=== PATIENT | male | born 1975 | race African-American/Black ===

== ENCOUNTER 2018-08-30 12:47 | Inpatient (IN) | payer OTHER ==
[2018-08-30 14:28] VITALS: BMI 41.7
--- NOTE | 2018-08-30 15:37 | HP ---
COWS - Scale Resting Pulse: 0= ME 80 or Below Sweatin= Chills/Flushing Restless Observation: 3= Extraneous Movement Pupil Size: 1= Pupils >than Normal Bone or Joint Aches: 1= Mild Discomfort Runny Nose/ Eye Tearin= Runny Nose/Eyes GI Upset > 30mins: 1= Stomach Cramp Tremor Observation: 1= Tremor [place], Not Seen Yawning Observation: 1= 1-2x During Session Anxiety or Irritability: 1=Feels Anxious/Irritable Goose Flesh Skin: 0=Smooth Skin COWS Score: 12 CIWA Score - Admission Criteria OASAS Guidelines: Admission for Medically Managed Detox: Requires at least one of the followin. CIWA greater than 12 2. Seizures within the past 24 hours 3. Delirium tremens within the past 24 hours 4. Hallucinations within the past 24 hours 5. Acute intervention needed for co occurring medical disorder 6. Acute intervention needed for co occurring psychiatric disorder 7. Severe withdrawal that cannot be handled at a lower level of care (continued vomiting, continued diarrhea, abnormal vital signs) requiring intravenous medication and/or fluids 8. Patient presents the following: CIWA greater than 12 Admission Criteria Met: Admission criteria met Admission ROS [facility] Chief Complaint: heroin detox 43 yo with h/o DM, [facility], referred here b/c they do not accept his insurance. Pt has never been in detox. Has not had metformin for DM for 2 years b/c does not have PCP, got the metformin from last ER visit for cellulitis and DM in 2017. Does not check his f /s. Works as dispatcher for [email or web address]. Pt is homeless heroin use for the last year- was on pain pills since age 39 - got it from a friend for back pain b/c he did not have insurance to go to PCP. uses 8 bags/day sniffing, no h/o OD. Last use of heroin yesterday. utox- fentanyl, DUR- no meds Allergies/Adverse Reactions: Allergies Allergy/AdvReac Type Severity Reaction Status Date / Time No Known Allergies Allergy Verified 08/30/18 14:21 - Ebola screening Have you traveled outside of the country in the last 21 days: No (N) Have you had contact with anyone from an Ebola affected area: No Do you have a fever: No Patient History - Patient Medical History Hx Anemia: No Hx Asthma: No Hx Chronic Obstructive Pulmonary Disease (COPD): No Hx Cancer: No Hx Cardiac Disorders: No Hx Congestive Heart Failure: No Hx Hypertension: No Hx Hypercholesterolemia: No Hx Pacemaker: No HX Cerebrovascular Accident: No Hx Seizures: No Hx Dementia: No Hx Diabetes: Yes (does not take meds, has no PCP) Hx Gastrointestinal Disorders: No Hx Liver Disease: No Hx Genitourinary Disorders: No Hx Sexually Transmitted Disorders: No Hx Renal Disease (ESRD): No Hx Thyroid Disease: No - Patient Surgical History Past Surgical History: No - PPD History Previous Implant?: Yes Documented Results: Negative w/o proof PPD to be Administered?: Yes - Smoking Cessation Smoking history: Current every day smoker Have you smoked in the past 12 months: Yes Aproximately how many cigarettes per day: 10 Hx Chewing Tobacco Use: No Initiated information on smoking cessation: Yes 'Breaking Loose' booklet given: 08/30/18 - Substance & Tx. History Hx Alcohol Use: Yes Hx Substance Use: Yes Substance Use Type: Heroin - Substances abused Heroin Substance route: Inhalation Frequency: Daily Amount used: 6 bags Age of first use: 42 Date of last use: 08/29/18 Family Disease History - Family Disease History Family Disease History: Diabetes: Grandparent Admission Physical Exam BHS - Vital Signs Vital Signs: Vital Signs - 24 hr 08/30/18 14:20 Temperature 98.9 F Pulse Rate 76 Respiratory 19 Rate Blood Pressure 150/75 - Physical General Appearance: Yes: Within Normal Limits, Disheveled HEENTM: Yes: Within Normal Limits, EOMI Respiratory: Yes: Within Normal Limits, Lungs Clear, Other (no rales) Neck: Yes: Within Normal Limits Cardiology: Yes: Within Normal Limits, Regular Rhythm, Regular Rate, S1, S2 (no S3, S4) Abdominal: Yes: Within Normal Limits, Normal Bowel Sounds, Non Tender, Protuberent Genitourinary: Yes: Within Normal Limits Back: Yes: Within Normal Limits Musculoskeletal: Yes: Within Normal Limits Extremities: Yes: Swelling, Other (joaquín leg edema 3+) Neurological: Yes: Within Normal Limits, senior it security analyst II-XII NML intact, Fully Oriented Integumentary: Yes: Within Normal Limits, Pitting Edema Lymphatic: Yes: Within Normal Limits - Diagnostic (1) Heroin use disorder, mild Current Visit: Yes Status: Acute (2) Leg edema Current Visit: Yes Status: Acute (3) Diabetes Current Visit: Yes Status: Acute Breathalyzer - Breathalyzer Breathalyzer: 0 Urine Drug Screen - Test Device Lot number: [id number] Expiration date: 05/25/20 - Control Is test valid?: Yes - Results Drug screen NEGATIVE: No Urine drug screen results: FEN-Fentanyl Inpatient Rehab Admission - Rehab Decision to Admit Inpatient rehab admission?: No
[2018-08-30] MEDS ORDERED: MENTHOL/PHENOL 1 EACH UD MM PRN ×2 (15:56→16:01)
[2018-08-30] MEDS ORDERED: hydrOXYzine PAMOATE 25 MG CAPSULE (FP) PO PRN ×2 (15:56→16:01)
[2018-08-30] MEDS ORDERED: ACETAMINOPHEN 325 MG TABLET (FP) PO PRN ×2 (16:01)
[2018-08-30] MEDS ORDERED: MAGNESIUM CITRATE 300 ML BOTTLE PO PRN (16:01)
[2018-08-30] MEDS ORDERED: MELATONIN 5 MG TABLETS PO PRN (16:01)
[2018-08-30] MEDS ORDERED: IBUPROFEN 400 MG TABLET (FP) PO PRN (16:01)
[2018-08-30] MEDS ORDERED: MAGNESIUM HYDROX 2400MG/30ML ORAL SUSPENSION 30 ML CUP PO PRN (16:01)
[2018-08-30] MEDS ORDERED: BISMUTH SUBSALICYLATE 524 MG/30 ML UD PO PRN (16:01)
[2018-08-30] MEDS ORDERED: MAG HYDROX/AL HYDROX/SIMETH 30 ML UNIT-DOSE CUP PO PRN (16:01)
[2018-08-30] MEDS ORDERED: NICOTINE POLACRILEX 2 MG GUM BUC PRN (16:01)
[2018-08-30] MEDS ORDERED: METHOCARBAMOL 500 MG TABLET PO PRN (16:01)
[2018-08-30] MEDS ORDERED: cloNIDine HCL 0.1 MG TABLET PO PRN (16:05)
[2018-08-30] MEDS: clonazePAM 0.5 MG TABLET PO PRN (17:57)
[2018-08-30] MEDS: HYDROCHLOROTHIAZIDE 12.5 MG CAPSULE (FP) PO SCH (17:57)
[2018-08-30] MEDS: THIAMINE HCL 100 MG TABLET (FP) PO SCH (22:11)
[2018-08-30] MEDS ORDERED: METHADONE HCL 10 MG TABLET (FOR DETOX USE ONLY) PO ONE (23:00)
[2018-08-31] MEDS ORDERED: METHADONE HCL 5 MG TABLET (FOR DETOX USE ONLY) PO ONE (10:00)
[2018-08-31 10:22] LABS: HEMATOCRIT 38.1 % (35.4-49); HEMOGLOBIN 12.8 GM/dL (11.7-16.9); MCH 29.9 pg (25.7-33.7); MCHC 33.7 g/dl (32.0-35.9); MEAN CELL VOLUME 88.8 fl (80-96); MEAN PLT VOLUME 10.8 fl (7.5-11.1); PLATELET COUNT 154 K/MM3 (134-434); RBC 4.29 M/mm3 (4.00-5.60); RDW 12.7 % (11.9-15.9); WHITE BLOOD COUNT 8.1 K/mm3 (4.0-10.0)
[2018-08-31 10:29] LABS: BILIRUBIN,TOTAL 1.1 mg/dL (0.2-1); CALCIUM 8.7 mg/dL (8.5-10.1); CREATININE 0.8 mg/dL (0.55-1.3); POTASSIUM 3.8 mmol/L (3.5-5.1); TOT PROT 6.8 g/dl (6.4-8.2)
[2018-08-31] MEDS: HYDROCHLOROTHIAZIDE 12.5 MG CAPSULE (FP) PO SCH (10:48)
[2018-08-31] MEDS: PRENATAL VITAMINS W/ FOLIC ACID TABLET (FP) PO SCH (10:48)
[2018-08-31] MEDS: NICOTINE 14 MG/24 HOURS TOPICAL PATCH TD SCH (10:48)
--- NOTE | 2018-08-31 13:28 | PN ---
S COWS - Scale Resting Pulse: 0= [place] 80 or Below Sweatin= Chills/Flushing Restless Observation: 1= Difficult to Sit Still Pupil Size: 1= Pupils >than Normal Bone or Joint Aches: 2= Severe Diffuse Aches Runny Nose/ Eye Tearin= Nasal Congestion GI Upset > 30mins: 2= Nausea/Diarrhea Tremor Observation of Outstretched Hands: 2= Slight Tremor Visible Yawning Observation: 1= 1-2x During Session Anxiety or Irritability: 2=Irritable/Anxious Goose Flesh Skin: 0=Smooth Skin COWS Score: 13 BHS Progress Note (SOAP) Subjective: alert,irritable,anxious,interrupted sleep,pain in the body,back Objective: 08/31/18 13:26 Vital Signs Temperature 96.8 F L 08/31/18 09:12 Pulse Rate 59 L 08/31/18 09:12 Respiratory Rate 18 08/31/18 09:12 Blood Pressure 119/74 08/31/18 09:12 O2 Sat by Pulse Oximetry (%) Laboratory Last Values WBC 8.1 K/mm3 (4.0-10.0) 08/31/18 07:30 RBC 4.29 M/mm3 (4.00-5.60) 08/31/18 07:30 Hgb 12.8 GM/dL (11.7-16.9) 08/31/18 07:30 Hct 38.1 % (35.4-49) 08/31/18 07:30 MCV 88.8 fl (80-96) 08/31/18 07:30 MCH 29.9 pg (25.7-33.7) 08/31/18 07:30 MCHC 33.7 g/dl (32.0-35.9) 08/31/18 07:30 RDW 12.7 % (11.9-15.9) 08/31/18 07:30 Plt Count 154 K/MM3 (134-434) 08/31/18 07:30 MPV 10.8 fl (7.5-11.1) 08/31/18 07:30 Sodium 143 mmol/L (136-145) 08/31/18 07:30 Potassium 3.8 mmol/L (3.5-5.1) 08/31/18 07:30 Chloride 108 mmol/L (98-107) H 08/31/18 07:30 Carbon Dioxide 29 mmol/L (21-32) 08/31/18 07:30 Anion Gap 6 MMOL/L (8-16) L 08/31/18 07:30 BUN 6 mg/dL (7-18) L 08/31/18 07:30 Creatinine 0.8 mg/dL (0.55-1.3) 08/31/18 07:30 Est GFR (CKD-EPI)AfAm 128.60 08/31/18 07:30 Est GFR (CKD-EPI)NonAf 110.96 08/31/18 07:30 POC Glucometer 152 UNITS (80-120) 08/31/18 07:22 Random Glucose 131 mg/dL (74-106) H 08/31/18 07:30 Calcium 8.7 mg/dL (8.5-10.1) 08/31/18 07:30 Total Bilirubin 1.1 mg/dL (0.2-1) H 08/31/18 07:30 AST 11 U/L (15-37) L 08/31/18 07:30 ALT 22 U/L (13-61) 08/31/18 07:30 Alkaline Phosphatase 110 U/L (45-117) 08/31/18 07:30 Total Protein 6.8 g/dl (6.4-8.2) 08/31/18 07:30 Albumin 3.0 g/dl (3.4-5.0) L 08/31/18 07:30 Assessment: 08/31/18 13:27 continue detox,bgm monitoring,metformin 500 mgs po bidac
--- NOTE | 2018-08-31 13:32 | PN ---
BHS Progress Note Note: ekg sinus bradycardia 47/min,qt 475/421,no chest pain,no sob,no dizziness
--- NOTE | 2018-08-31 15:40 | EKG ---
Test Reason : Blood Pressure : / mmHG Vent. Rate : 077 BPM Atrial Rate : 077 BPM P-R Int : 150 ms QRS Dur : 098 ms QT Int : 386 ms P-R-T Axes : 030 073 060 degrees QTc Int : 436 ms NORMAL SINUS RHYTHM MINIMAL VOLTAGE CRITERIA FOR LVH, MAY BE NORMAL VARIANT BORDERLINE ECG NO PREVIOUS ECGS AVAILABLE Confirmed by JUN SINGER MD ([id number]) on 08/31/2018 3:40:20 PM Referred By: Confirmed By:JUN SINGER MD
[2018-08-31] MEDS: metFORMIN HCL 500 MG TABLET (FP) PO SCH (18:00)
[2018-08-31] MEDS: THIAMINE HCL 100 MG TABLET (FP) PO SCH (23:06)
[2018-09-01] MEDS: metFORMIN HCL 500 MG TABLET (FP) PO SCH ×2 (06:43→17:20)
[2018-09-01] MEDS ORDERED: METHADONE HCL 10 MG TABLET (FOR DETOX USE ONLY) PO ONE (10:00)
[2018-09-01] MEDS: HYDROCHLOROTHIAZIDE 12.5 MG CAPSULE (FP) PO SCH (10:07)
[2018-09-01] MEDS: NICOTINE 14 MG/24 HOURS TOPICAL PATCH TD SCH (10:07)
[2018-09-01] MEDS: PRENATAL VITAMINS W/ FOLIC ACID TABLET (FP) PO SCH (10:07)
--- NOTE | 2018-09-01 12:07 | PN ---
S CIWA - CIWA Score Nausea/Vomitin Muscle Tremors: 2 Anxiety: 2 Agitation: 2 Paroxysmal Sweats: 1-Minimal Palms Moist Orientation: 0-Oriented Tacttile Disturbances: 1-Very Mild Itch/Numbness Auditory Disturbances: 1-Very Mild Visual Disturbances: 0-None Headache: 1-Very Mild CIWA-Ar Total Score: 12 BHS Progress Note (SOAP) Subjective: alert,irritable,anxious,interrupted sleep Objective: 09/01/18 12:05 Vital Signs Temperature 99 F 09/01/18 09:25 Pulse Rate 54 L 09/01/18 09:25 Respiratory Rate 20 09/01/18 09:25 Blood Pressure 116/76 09/01/18 09:25 O2 Sat by Pulse Oximetry (%) 09/01/18 12:06 bgm 174 Assessment: 09/01/18 12:06 withdrawal symptom Plan: continue detox,discharge in am,bgm monitoring
--- NOTE | 2018-09-01 12:11 | PN ---
BHS COWS - Scale Resting Pulse: 0= [place] 80 or Below Sweatin= Chills/Flushing Restless Observation: 1= Difficult to Sit Still Pupil Size: 1= Pupils >than Normal Bone or Joint Aches: 2= Severe Diffuse Aches Runny Nose/ Eye Tearin= Nasal Congestion GI Upset > 30mins: 2= Nausea/Diarrhea Tremor Observation of Outstretched Hands: 2= Slight Tremor Visible Yawning Observation: 1= 1-2x During Session Anxiety or Irritability: 2=Irritable/Anxious Goose Flesh Skin: 0=Smooth Skin COWS Score: 13 BHS Progress Note (SOAP) Subjective: alert,irritable,anxiuos,interrupted sleep,pain in the body Objective: 09/01/18 12:10 Vital Signs Temperature 99 F 09/01/18 09:25 Pulse Rate 54 L 09/01/18 09:25 Respiratory Rate 20 09/01/18 09:25 Blood Pressure 116/76 09/01/18 09:25 O2 Sat by Pulse Oximetry (%) Assessment: 09/01/18 12:11 withdrawal symptom Plan: continue detox
--- NOTE | 2018-09-01 12:12 | PN ---
BHS Progress Note Note: please disregard note on this patient at 12.04
[2018-09-01] MEDS: clonazePAM 0.5 MG TABLET PO PRN (21:45)
[2018-09-01] MEDS: THIAMINE HCL 100 MG TABLET (FP) PO SCH (21:45)
[2018-09-02] MEDS ORDERED: METHADONE HCL 5 MG TABLET (FOR DETOX USE ONLY) PO ONE (06:00)
[2018-09-02 06:15] VITALS: BP 115/69; PULSE 87; TEMP 97.5
[2018-09-02] MEDS: metFORMIN HCL 500 MG TABLET (FP) PO SCH (07:14)
[2018-09-02] MEDS: NICOTINE 14 MG/24 HOURS TOPICAL PATCH TD SCH (09:59)
[2018-09-02] MEDS: PRENATAL VITAMINS W/ FOLIC ACID TABLET (FP) PO SCH (09:59)
[2018-09-02] MEDS: HYDROCHLOROTHIAZIDE 12.5 MG CAPSULE (FP) PO SCH (09:59)
--- NOTE | 2018-09-02 14:18 | DS ---
[facility] Detox Discharge Summary Admission Date: 08/30/18 Discharge Date: 09/02/18 - History Present History: Opioid Dependence Additional Comments: Pt is medically cleared and is discharged today. Pt has completed his detox protocol. Pt is encouraged to follow-up with CD oupatient program and also follow-up with PMD. Pt is AOX3, in no acute distress. Pertinent Past History: H/O DM, heroine, and alcohol use disorder - Physical Exam Results Vital Signs: Vital Signs Temperature 97.5 F L 09/02/18 06:14 Pulse Rate 87 09/02/18 06:14 Respiratory Rate 18 09/02/18 06:14 Blood Pressure 115/69 09/02/18 06:14 O2 Sat by Pulse Oximetry (%) Lab Results WBC 8.1 K/mm3 (4.0-10.0) 08/31/18 07:30 RBC 4.29 M/mm3 (4.00-5.60) 08/31/18 07:30 Hgb 12.8 GM/dL (11.7-16.9) 08/31/18 07:30 Hct 38.1 % (35.4-49) 08/31/18 07:30 MCV 88.8 fl (80-96) 08/31/18 07:30 MCHC 33.7 g/dl (32.0-35.9) 08/31/18 07:30 RDW 12.7 % (11.9-15.9) 08/31/18 07:30 Plt Count 154 K/MM3 (134-434) 08/31/18 07:30 Sodium 143 mmol/L (136-145) 08/31/18 07:30 Potassium 3.8 mmol/L (3.5-5.1) 08/31/18 07:30 Chloride 108 mmol/L (98-107) H 08/31/18 07:30 Carbon Dioxide 29 mmol/L (21-32) 08/31/18 07:30 Anion Gap 6 MMOL/L (8-16) L 08/31/18 07:30 BUN 6 mg/dL (7-18) L 08/31/18 07:30 Creatinine 0.8 mg/dL (0.55-1.3) 08/31/18 07:30 Random Glucose 131 mg/dL (74-106) H 08/31/18 07:30 Calcium 8.7 mg/dL (8.5-10.1) 08/31/18 07:30 Labs noted. Pertinent Admission Physical Exam Findings: withdrawal symptoms. - Treatment Hospital Course: Detox Protocol Followed, Detoxed Safely, Responded well, Discharged Condition Good - Medication Discharge Medications: Ambulatory Orders Metformin HCl [Glucophage] 500 mg PO BID 08/30/18 - Diagnosis (1) Diabetes Status: Acute (2) Heroin use disorder, mild Status: Acute (3) Leg edema Status: Acute - AMA Did Patient Leave Against Medical Advice: No
--- NOTE | 2018-09-02 16:57 | EKG ---
Test Reason : Blood Pressure : / mmHG Vent. Rate : 047 BPM Atrial Rate : 047 BPM P-R Int : 154 ms QRS Dur : 096 ms QT Int : 476 ms P-R-T Axes : 049 083 081 degrees QTc Int : 421 ms SINUS BRADYCARDIA OTHERWISE NORMAL ECG WHEN COMPARED WITH ECG OF 30-AUG-2018 16:09, VENT. RATE HAS DECREASED BY 30 BPM Confirmed by JADE CUMMINGS MD ([id number]) on 09/02/2018 4:57:23 PM Referred By: Confirmed By:JADE CUMMINGS MD
== END 2018-09-02 09:00 | disposition home or self-care (01) | DRG 773 ==
LOC: YASAS 12:47 → Y3N 16:34
PROVIDERS: ADMIT Surgery; ATTEND Surgery
PROC: HZ2ZZZZ Detoxification Services for Substance Abuse Treatment (ICD-10-PCS; principal; 2018-08-30)
DX: F11.23 Opioid dependence with withdrawal (principal); F10.10 Alcohol abuse, uncomplicated; E11.9 Type 2 diabetes mellitus without complications; Z79.84 Long term (current) use of oral hypoglycemic drugs; R60.0 Localized edema
CPT/HCPCS: 36415; 80053; 82962; 85027; 86593; 93005; 93010